=== PATIENT | female | born 1960 | race Caucasian/White ===

== ENCOUNTER 2018-07-07 14:33 | Outpatient (CLI) | payer BC ==
--- NOTE | 2018-07-07 15:54 | ULT ---
ULTRASOUND ABDOMEN COMPLETE: 07/07/18 HISTORY: 57-year-old female with R10.84, generalized abdominal pain. FINDINGS: Liver: Diffusely hyperechoic with signal dropout in the deep maldonado. This may or may not represent fa tty liver. Gallbladder: Surgically absent, as per dot net architect. Common duct: 6 mm. Spleen: No splenomegaly. Pancreas: Nonspecific sonographic appearance. Kidneys: No hydronephrosis. Abdominal aorta: No aneurysm. Inferior vena cava: Unremarkable where visualized. IMPRESSION: 1. Status post cholecystectomy? 2. Questionable hepatic steatosis. MARISA Cavanaugh POS: JOSUE
== END 2018-07-07 14:34 | disposition home or self-care (01) ==
LOC: BICULT 14:33
PROVIDERS: ATTEND Family Medicine
DX: R10.84 Generalized abdominal pain (principal)
CPT/HCPCS: 76700

== ENCOUNTER 2021-02-19 15:22 | Outpatient (CLI) | payer BC | END 2021-02-19 15:23 | disposition home or self-care (01) | LOC: BICMAMMO 15:22 | PROVIDERS: ATTEND Family Medicine | DX: Z12.31 Encounter for screening mammogram for malignant neoplasm of breast (principal); Z80.3 Family history of malignant neoplasm of breast | CPT/HCPCS: 77063; 77067 ==

== ENCOUNTER 2022-04-01 10:47 | Outpatient (CLI) | payer BC | END 2022-04-01 10:48 | disposition home or self-care (01) | LOC: BICMAMMO 10:47 | PROVIDERS: ATTEND Family Medicine | DX: Z12.31 Encounter for screening mammogram for malignant neoplasm of breast (principal); Z80.3 Family history of malignant neoplasm of breast | CPT/HCPCS: 77063; 77067 ==

== ENCOUNTER 2025-01-18 14:50 | Outpatient (CLI) | payer BC | END 2025-01-18 14:51 | disposition home or self-care (01) | LOC: BICMAMMO 14:50 | PROVIDERS: ATTEND Student in an Organized Health Care Education/Training Program | DX: Z12.31 Encounter for screening mammogram for malignant neoplasm of breast (principal); Z80.3 Family history of malignant neoplasm of breast | CPT/HCPCS: 77063; 77067 ==